=== PATIENT | female | born 1950 | race Caucasian/White ===

== ENCOUNTER 2017-04-08 15:42 | Emergency (ER) | payer OTHER, BC ==
[~2017-04-08] VITALS: Ht 165.1 cm; Wt 120.3 kg
[~2017-04-08 15:42] MED LIST: ASPIRIN325 MG PO; ATENOLOL25 MG PO; AUGMENTIN875 MG PO; BACTRIM,SEPT1 TABLE1 PO; CEFTIN250 MG PO; ERGOCALCIF50000 UNIT PO; HYDROCHLOROTH12.5 M3; KEFLEX500 MG PO; LEVOFLOXACIN250 MG PO; OXYCODONE-APAP1 EACH PO; PERCOCET 5/31 TABLET PO; PRAVASTATIN SOD20 MG; PRAVASTATIN SOD20 MG PO; PREDNISONE10 MG PO; PREDNISONE50 MG PO; ST. JOSEPH ASPI81 MG PO; TRAMADOL HCL50 MG PO; TRIMETHOPRIM100 MG PO; TYLENOL ARTHRI650 MG PO; TYLENOL EXTRA500 MG PO; TYLENOL WITH C1 EACH PO; VALIUM5 MG PO; VICODIN,LORT1 TABLET PO; VITAMIN D31000 UNIT PO; ZOFRAN ODT4 MG PO; ZOFRAN4 MG PO
[2017-04-08] MEDS ORDERED: MOTRIN800 MG PO (20:50)
[2017-04-08] MEDS ORDERED: NORCO 10/3251 TABLET PO (20:50)
[2017-04-08 20:53] VITALS: BP 154/78
== END 2017-04-08 20:54 | disposition left against medical advice (07) ==
LOC: EME 15:42
DX: S46.001A Unspecified injury of muscle(s) and tendon(s) of the rotator cuff of right shoulder, initial encounter (principal); X58.XXXA Exposure to other specified factors, initial encounter; M24.011 Loose body in right shoulder; I10 Essential (primary) hypertension; E78.5 Hyperlipidemia, unspecified; Z79.82 Long term (current) use of aspirin
CPT/HCPCS: 73030; 73060; 99281; 99284; J3010